=== PATIENT | female | born 1955 | race Caucasian/White ===

== ENCOUNTER 2021-01-30 13:23 | Emergency (ER) | payer OTHER ==
[~2021-01-30 13:23] MED LIST: AMLODIPINE BESYL5 MG PO; BACTRIM DS TAB1 EACH PO; DULOXETINE HCL60 MG PO; GABAPENTIN300 MG PO; GLIPIZIDE ER10 MG PO; K-DUR20 MEQ PO; LASIX40 MG PO; VOLTAREN **OUT75 MG PO
[2021-01-30 14:05] LABS: BASOPHIL 0.3 % (0-2); EOSINOPHIL 0 % (0-7); HGB 11.1 g/dl (12.5-16.0); LYMPHOCYTE 24.8 % (15-48); MCH 25.3 pg (25.0-31.0); MCHC 32.6 g/dL (32.0-36.0); MCV 77.4 fL (78.0-100.0); MONOCYTE 10.1 % (0-12); MPV 8.9 fL (6.0-9.5); NEUTROPHIL 63.9 % (41-80); NRBC 0; PLT 555 K/uL (150-400); RBC 4.39 M/uL (4.20-5.40); WBC 23.3 K/uL (4.0-10.5)
[2021-01-30 14:59] LABS: ALBUMIN 2.1 g/dL (3.4-5.0); BILIRUBIN - TOTAL 0.5 mg/dL (0.2-1.0); BUN/CREAT RATIO (CALC) 11.6 RATIO; CREATININE 0.43 mg/dL (0.51-0.95); GLOBULIN (CALCULATION) 4.8 g/dL; POTASSIUM 3.3 mmol/L (3.5-5.1); TOTAL PROTEIN 6.9 g/dL (6.4-8.2)
== END 2021-01-30 15:13 | disposition home or self-care (01) ==
LOC: FER 13:23
PROVIDERS: Internal Medicine
DX: M86.9 Osteomyelitis, unspecified (principal); M72.6 Necrotizing fasciitis; I10 Essential (primary) hypertension; E11.9 Type 2 diabetes mellitus without complications
CPT/HCPCS: 36415; 73700; 80053; 85025